=== PATIENT | male | born 1980 | race Caucasian/White ===

== ENCOUNTER 2017-08-30 08:14 | Emergency (ER) | payer SELFPAY ==
[~2017-08-30] VITALS: Ht 180.3 cm; Wt 63.9 kg
[~2017-08-30 08:14] MED LIST: NO HOME MEDS; PEN-VEE K,VEET500 MG PO; PROMETHAZINE HC25 M1 PO; TRAMADOL HCL50 MG PO
[2017-08-30 08:17] VITALS: BP 137/80
[2017-08-30] MEDS ORDERED: TRAMADOL HCL50 MG PO (09:00)
[2017-08-30] MEDS ORDERED: PEN-VEE K,VEET500 MG PO (09:00)
== END 2017-08-30 09:28 | disposition home or self-care (01) ==
LOC: EME 08:14
PROC: 3E0T3BZ Introduction of Anesthetic Agent into Peripheral Nerves and Plexi, Percutaneous Approach (ICD-10-PCS; principal; 2017-08-30)
DX: K02.9 Dental caries, unspecified (principal)
CPT/HCPCS: 99281; 99284; S0020

== ENCOUNTER 2017-11-20 09:29 | Emergency (ER) | payer BC ==
[~2017-11-20] VITALS: Ht 177.8 cm; Wt 63.7 kg
[2017-11-20] MEDS ORDERED: MOTRIN600 MG PO (10:49)
[2017-11-20 10:56] VITALS: BP 119/81
== END 2017-11-20 10:57 | disposition home or self-care (01) ==
LOC: RME 09:29 → EME 09:29 → RME 10:57
DX: J11.1 Influenza due to unidentified influenza virus with other respiratory manifestations (principal); F17.200 Nicotine dependence, unspecified, uncomplicated
CPT/HCPCS: 87502

== ENCOUNTER 2018-01-16 19:28 | Emergency (ER) | payer BC ==
[~2018-01-16] VITALS: Ht 177.8 cm; Wt 67.1 kg
[~2018-01-16 19:28] MED LIST changes: +MOTRIN600 MG PO
[2018-01-16] MEDS ORDERED: MOTRIN800 MG PO (20:12)
[2018-01-16] MEDS ORDERED: AUGMENTIN875 MG PO (20:12)
[2018-01-16 20:38] VITALS: BP 128/86
== END 2018-01-16 20:41 | disposition home or self-care (01) ==
LOC: EME 19:28
DX: K02.9 Dental caries, unspecified (principal); F17.200 Nicotine dependence, unspecified, uncomplicated
CPT/HCPCS: 99281; 99283

== ENCOUNTER 2018-04-25 08:08 | Observation (INO) | payer BC ==
[~2018-04-25] VITALS: Ht 175.3 cm; Wt 69.3 kg
[~2018-04-25 08:08] MED LIST changes: +AUGMENTIN875 MG PO; +MOTRIN800 MG PO
[2018-04-25 08:32] LABS: HEMATOCRIT 43.3 % (38.0-50.0); HEMOGLOBIN 14.6 G/DL (12.5-16.6); MCH 29.1 PG (29.0-34.0); MCHC 33.7 G/DL (30.0-36.0); MCV 86.3 FL (86-99); RBC DIS.WIDTH-CV 13.4 % (11.8-14.6); RBC DIS.WIDTH-SD 42.3 % (39-53); RED BLOOD COUNT 5.02 M/uL (4.00-5.50); WHITE BLOOD COUNT 8.1 K/uL (4.1-10.2)
[2018-04-25 08:43] LABS: CHLORIDE 105 mEq/L (99-109); POTASSIUM 4.4 mEq/L (3.7-5.4); SODIUM 141 mEq/L (136-147)
[2018-04-25 08:44] LABS: GLUCOSE 106 mg/dL (70-99)
[2018-04-25 08:49] LABS: CREATININE 0.8 mg/dL (0.6-1.3); GFR ESTIMATE (CALCULATED) > 59 mL/min/ (58.99-99999); UREA NITROGEN (BUN) 13 mg/dL (9-23)
[2018-04-25 08:53] LABS: TROP-I INTERPRETATION NEGATIVE; TROPONIN-I < 0.01 ng/mL (0.0-0.30)
[2018-04-25 08:58] LABS: ALBUMIN 4.5 g/dL (3.2-4.8)
[2018-04-25 09:01] LABS: TOTAL PROTEIN 7.2 g/dL (6.4-8.3)
[2018-04-25 09:03] LABS: TOTAL BILIRUBIN 0.8 mg/dL (0.0-1.0)
[2018-04-25 09:04] LABS: ALKALINE PHOSPHATASE 64 IU/L (3-129)
[2018-04-25 09:06] LABS: AST (GOT) 45 IU/L (2-34); DIRECT BILIRUBIN 0.3 mg/dL (0.0-0.3)
[2018-04-25 09:07] LABS: ALT (GPT) 62 IU/L (3-49); LIPASE 459 U/L (1.0-51.0)
[2018-04-25 09:35] LABS: PLAT.SUFFICIENCY ADEQUATE; PLATELET COUNT 171 K/uL (156-360)
[2018-04-25] MEDS ORDERED: ADVIL,NUPRIN,M200 MG PO (09:56)
[2018-04-25 12:16] VITALS: BP 120/76
[2018-04-25 15:25] VITALS: BP 125/69
[2018-04-25 20:00] VITALS: BP 141/80
[2018-04-26 00:06] VITALS: BP 115/55
[2018-04-26 04:47] VITALS: BP 131/60
[2018-04-26 05:33] LABS: BASOPHIL (%) 0.7 % (0-1); BASOPHIL COUNT 0.1 K/uL (0-0.1); EOSINOPHIL (%) 3.3 % (0-5); EOSINOPHIL COUNT 0.2 K/uL (0-0.3); HEMATOCRIT 38.3 % (38.0-50.0); HEMOGLOBIN 12.8 G/DL (12.5-16.6); IMMATURE GRANULOCYTE (%) 0.3 % (0.0-0.7); LYMPHOCYTE (%) 28.7 % (15-42); LYMPHOCYTE COUNT 1.9 K/uL (1.0-2.8); MCH 28.8 PG (29.0-34.0); MCHC 33.4 G/DL (30.0-36.0); MCV 86.1 FL (86-99); MONOCYTE COUNT 0.7 K/uL (0-0.8); NEUTROPHIL COUNT 3.8 K/uL (1.8-6.4); PLATELET COUNT 146 K/uL (156-360); RBC DIS.WIDTH-CV 13.5 % (11.8-14.6); RBC DIS.WIDTH-SD 42.7 % (39-53); RED BLOOD COUNT 4.45 M/uL (4.00-5.50); WHITE BLOOD COUNT 6.7 K/uL (4.1-10.2)
[2018-04-26 05:59] LABS: ALBUMIN 3.8 G/DL (3.2-4.8); ALKALINE PHOSPHATASE 48 IU/L (3-129); ALT (GPT) 32 IU/L (3-49); AMYLASE 72 IU/L (1-118); AST (GOT) 21 IU/L (2-34); CHLORIDE 112 MEQ/L (99-109); CREATININE 0.8 MG/DL (0.6-1.3); GFR ESTIMATE (CALCULATED) > 59 mL/min/ (58.99-99999); GLUCOSE 98 mg/dL (70-99); LIPASE 133 U/L (1.0-51.0); POTASSIUM 4.1 MEQ/L (3.7-5.4); SODIUM 143 MEQ/L (136-147); TOTAL BILIRUBIN 1.2 MG/DL (0.0-1.0); TOTAL PROTEIN 5.7 G/DL (6.4-8.3); UREA NITROGEN (BUN) 12 mg/dL (9-23)
[2018-04-26] MEDS ORDERED: THERAGRAN1 TABLET PO (07:57)
[2018-04-26] MEDS ORDERED: THIAMINE HCL100 MG PO (07:57)
[2018-04-26] MEDS ORDERED: NICOTINE PATCH1 EAC2 TD (07:57)
[2018-04-26] MEDS ORDERED: FOLIC ACID1 MG PO (07:57)
[2018-04-26 08:00] VITALS: BP 119/75
== END 2018-04-26 11:21 | disposition home or self-care (01) ==
LOC: EME 08:08 → EDOF 09:49 → 4SOUTH 09:49 → EDOF 09:49 → ENRESERV 09:51 → 4SOUTH 11:17
PROVIDERS: Nurse Practitioner Adult Health
DX: R07.9 Chest pain, unspecified (principal); R74.8 Abnormal levels of other serum enzymes; M25.511 Pain in right shoulder; F17.200 Nicotine dependence, unspecified, uncomplicated
CPT/HCPCS: 71046; 71250; 76705; 80048; 80053; 80076; 80306 90; 82150; 83690; 84484; 85025; 85027; 93005; 99281; 99285; G0378; J1885; J2405; J3411; J7030